=== PATIENT | female | born 1935 | race Caucasian/White ===

== ENCOUNTER → 2016-12-04 | Outpatient (CLI) | payer MEDICARE | LOC: KOH-I 14:52 → US 12-10 12:30 | DX: N18.3 Chronic kidney disease, stage 3 (moderate) (principal) | CPT/HCPCS: 76775 ==

== ENCOUNTER 2021-09-06 17:20 | Inpatient (IN) | payer OTHER ==
[~2021-09-06] VITALS: Ht 157.5 cm; Wt 48.1 kg
[~2021-09-06 17:20] MED LIST: ALENDRONATE SOD70 MG PO; MACROBID 100 M100 MG PO
[2021-09-06 18:33] LABS: HEMOGLOBIN 13.2 gm/dl (12.3-15.3); RED BLOOD COUNT 4.42 M/UL (4.00-5.10); WHITE BLOOD COUNT 11.6 K/UL (4.5-11.0)
[2021-09-06 19:17] LABS: BUN/CREATININE RATIO 29 (0-10)
--- NOTE | 2021-09-07 00:26 | NUR ---
09/06/2021 @ APPROX 21:35 - Patient's nephew contacted this RN about pt's resuscitation status, stating that he is her medical POA. Pt's POA is inquiring about how to get the documents on her chart, as he lives in [place]. This RN transferred POA to Computer Systems Consultant Kristy. 09/06/2021 @ APPROX 21:55 - Patient's POA contacted this RN again, stating that he would like for the patient to be a DNR, as per her living will. POA states he would like to be contacted for any medical decisions. 09/06/2021 @ APPROX 23:30 - Documents obtained from Computer Systems Consultant Kristy and placed on chart. MD Gonzalez contacted, obtained order for DNR status. Bracelet placed on patient, verified with this RN and Ernie Breen RN.
[2021-09-07 03:00] LABS: HEMOGLOBIN 11.8 gm/dl (12.3-15.3); WHITE BLOOD COUNT 9.4 K/UL (4.5-11.0)
[2021-09-07 03:16] LABS: RED BLOOD COUNT 3.93 M/UL (4.00-5.10)
[2021-09-07] MEDS ORDERED: HYDROCHLOROTH12.5 MG PO (15:35)
[2021-09-07] MEDS ORDERED: DONEPEZIL HCL10 MG PO (15:36)
[2021-09-07] MEDS ORDERED: QUETIAPINE FUMA50 MG PO (15:36)
[2021-09-07] MEDS ORDERED: CYPROHEPTADINE H4 MG PO (15:37)
[2021-09-07] MEDS ORDERED: AMLODIPINE BESY10 MG PO (15:37)
[2021-09-07] MEDS ORDERED: ASPIRIN EC81 MG PO (15:39)
[2021-09-07] MEDS ORDERED: CALCIUM 600 +1 EAC3 PO (15:39)
[2021-09-07] MEDS ORDERED: MELATONIN10 M2 PO (15:39)
[2021-09-09 05:18] LABS: HEMOGLOBIN 7.7 gm/dl (12.3-15.3); RED BLOOD COUNT 2.57 M/UL (4.00-5.10); WHITE BLOOD COUNT 6.7 K/UL (4.5-11.0)
[2021-09-09 05:40] LABS: BUN/CREATININE RATIO 23 (0-10)
[2021-09-10 04:09] LABS: RED BLOOD COUNT 2.36 M/UL (4.00-5.10); WHITE BLOOD COUNT 5.4 K/UL (4.5-11.0)
[2021-09-10 04:12] LABS: HEMOGLOBIN 6.9 gm/dl (12.3-15.3)
[2021-09-10 04:26] LABS: BUN/CREATININE RATIO 24 (0-10)
--- NOTE | 2021-09-10 10:55 | NUR ---
NOTIFIED OF PT HAVING TEMP OF99.3 PRETRANSFUSION. STATES GO AHEAD WITH TRANSFUSION AND ALSO ORDERS TYLENOL TO BE GIVEN.
[2021-09-11 02:44] LABS: WHITE BLOOD COUNT 6.7 K/UL (4.5-11.0)
[2021-09-11 02:47] LABS: HEMOGLOBIN 11.5 gm/dl (12.3-15.3); RED BLOOD COUNT 3.93 M/UL (4.00-5.10)
[2021-09-11 03:11] LABS: BUN/CREATININE RATIO 21 (0-10)
[2021-09-12 03:36] LABS: HEMOGLOBIN 10.8 gm/dl (12.3-15.3); RED BLOOD COUNT 3.65 M/UL (4.00-5.10); WHITE BLOOD COUNT 5.1 K/UL (4.5-11.0)
[2021-09-12 04:03] LABS: BUN/CREATININE RATIO 26 (0-10)
[2021-09-13 03:16] LABS: HEMOGLOBIN 11.9 gm/dl (12.3-15.3)
[2021-09-13 03:18] LABS: RED BLOOD COUNT 4.02 M/UL (4.00-5.10); WHITE BLOOD COUNT 7.6 K/UL (4.5-11.0)
[2021-09-13 03:45] LABS: BUN/CREATININE RATIO 24 (0-10)
[2021-09-15 04:39] LABS: HEMOGLOBIN 11.1 gm/dl (12.3-15.3); RED BLOOD COUNT 3.78 M/UL (4.00-5.10); WHITE BLOOD COUNT 7.1 K/UL (4.5-11.0)
[2021-09-15] MEDS ORDERED: HYDROCODON-ACE1 EAC4 PO (10:47)
[2021-09-15] MEDS ORDERED: ENOXAPARIN40 MG/0.4 SC (10:47)
--- NOTE | 2021-09-15 14:57 | NUR ---
CALLED [facility]AY TO ARRANGE TRASNPORT AT [phone]. WILL CONTINUE TO MONITOR.
--- NOTE | 2021-09-15 15:33 | NUR ---
CALLED REPORT TO [facility] AND GAVE REPORT TO CHENG GODINEZ RN AT [phone]
== END 2021-09-16 08:45 | DRG 481 ==
LOC: ER1 17:20 → CDU 18:36 → M/S 18:36
PROVIDERS: Emergency Medicine; Internal Medicine; Orthopaedic Surgery; Physician Assistant; ADMIT Internal Medicine
PROC: 0QS604Z Reposition Right Upper Femur with Internal Fixation Device, Open Approach (ICD-10-PCS; principal; 2021-09-08 10:00)
PROC: 30233N1 Transfusion of Nonautologous Red Blood Cells into Peripheral Vein, Percutaneous Approach (ICD-10-PCS; 2021-09-10)
DX: S72.141A Displaced intertrochanteric fracture of right femur, initial encounter for closed fracture (principal); D62 Acute posthemorrhagic anemia; I12.9 Hypertensive chronic kidney disease with stage 1 through stage 4 chronic kidney disease, or unspecified chronic kidney disease; Z20.822 Contact with and (suspected) exposure to COVID-19; N18.30 Chronic kidney disease, stage 3 unspecified; E87.6 Hypokalemia; W01.0XXA Fall on same level from slipping, tripping and stumbling without subsequent striking against object, initial encounter; F03.90 Unspecified dementia, unspecified severity, without behavioral disturbance, psychotic disturbance, mood disturbance, and anxiety; Z87.440 Personal history of urinary (tract) infections; Y92.009 Unspecified place in unspecified non-institutional (private) residence as the place of occurrence of the external cause; Z90.49 Acquired absence of other specified parts of digestive tract; Z90.710 Acquired absence of both cervix and uterus; Z98.890 Other specified postprocedural states; Z80.1 Family history of malignant neoplasm of trachea, bronchus and lung; Z82.0 Family history of epilepsy and other diseases of the nervous system; Z79.01 Long term (current) use of anticoagulants; Z79.82 Long term (current) use of aspirin; Z95.1 Presence of aortocoronary bypass graft
CPT/HCPCS: 36415; 36430; 71045; 73502; 76000; 80048; 80053; 82550; 82553; 83735; 84484; 85025; 85610; 85730; 86850; 86900; 86901; 86920; 93005; 96374; 96375; 96376; 97110; 97110-GP-CQ; 97116-GP-CQ; 97162; 97166; 97530; 97530-GP-CQ; 97535; 99285; C1713; J0690; J1100; J1650; J2001; J2270; J2370; J2405; J2795; J3486; J7030; J7050; J7120; P9016; U0002